=== PATIENT | female | born 1990 | race Caucasian/White ===

== ENCOUNTER → 2016-06-11 | Outpatient (CLI) | payer BC | LOC: MW.CHOBGYN 14:51 | PROVIDERS: ATTEND Nurse Practitioner Women's Health | DX: N92.1 Excessive and frequent menstruation with irregular cycle (principal) | CPT/HCPCS: 36415; 84703; 87389; 87491; 87591 ==

== ENCOUNTER → 2016-06-12 | Outpatient (CLI) | payer BC | END | disposition home or self-care (01) | LOC: MW.CHOBGYN 12:10 | PROVIDERS: ATTEND Nurse Practitioner Women's Health | DX: O20.9 Hemorrhage in early pregnancy, unspecified (principal) | CPT/HCPCS: 36415; 84702; 86900; 86901 ==

== ENCOUNTER → 2016-06-14 | Outpatient (CLI) | payer BC | LOC: MW.CHOBGYN 11:39 | PROVIDERS: ATTEND Nurse Practitioner Women's Health | DX: O20.0 Threatened abortion (principal) | CPT/HCPCS: 36415; 84702 ==

== ENCOUNTER 2017-02-04 14:33 | Emergency (ER) | payer BC ==
[2017-02-04] MEDS ORDERED: Sodium Chloride 0.9% 2.5 ML Syringe FLUSH PRN (14:49)
[2017-02-04] MEDS ORDERED: Sodium Chloride 0.9% 10 ML Syringe FLUSH PRN (14:49)
[2017-02-04] MEDS ORDERED: Sodium Chloride 0.9% 1,000 ML IV ONE (14:50)
[2017-02-04] MEDS ORDERED: LORazepam 0.5 MG Tab PO ONE (14:50)
--- NOTE | 2017-02-04 14:57 | EDM.PDOC ---
ED HPI GENERAL MEDICAL PROBLEM - General Chief Complaint: Cardiovascular Problem Stated Complaint: ANXIETY Time Seen by Provider: 02/04/17 14:41 - History of Present Illness INITIAL COMMENTS - FREE TEXT/NARRATIVE: HISTORY AND PHYSICAL: History of present illness: Patient is a 27-year-old female who presents with vague complaints of feeling a Fluttery feeling in her stomach and feeling not right about her body and somewhat anxious which she says has never happened before. Patient says she drinks coffee and only had coffee today and no by mouth fluids otherwise or any food. She says she drinks coffee several times a day as well as one red bull drink and she also drinks alcohol every other night. She says that this pattern is not new or different and she has never had symptoms like this before with that pattern. She does smoke cigarettes but denies drug use. Patient says she doesn't feel shaky in her arms or legs and doesn't feel like she can pass out or blackout she just doesn't feel right and she thought she should come and get checked out. Patient has never been treated for anxiety or taken medications nor has she ever sought counseling. She does tell me that she has a lot of stressors going on in her life on several different fronts she is not very forthcoming with a lot of reading on these issues. She denies that she is suicidal homicidal. Patient says that she has a history of smoking marijuana sometimes but she is trying to get a new job so she has stopped doing that recently. She has no systemic complaints of fever chills or respiratory symptoms sore throat stomach pain chest pain shortness of breath. She says that the best way she can describe what she is feeling is that she feels very dissociated from everything going on around her and this stresses her. The patient states that she is currently not on control pills and has taken in the past for only one month Review of systems: As per history of present illness and below otherwise all systems reviewed and negative. Past medical history: As per history of present illness and as reviewed below otherwise noncontributory. Surgical history: As per history of present illness and as reviewed below otherwise noncontributory. Social history: No reported history of drug or alcohol abuse. Family history: As per history of present illness and as reviewed below otherwise noncontributory. Physical exam: Gen.: Well-developed well-nourished female who is nontoxic and does look very anxious in the room. She is somewhat fidgety sitting up and laying back and moving her right leg back and forth. HEENT: Atraumatic, normocephalic, pupils reactive, negative for conjunctival pallor or scleral icterus, mucous membranes moist, throat clear, neck supple, nontender, trachea midline. Lungs: Clear to auscultation, breath sounds equal bilaterally, chest nontender. Heart: S1S2, regular, rhythm and tachycardic rate on my evaluation Abdomen: Soft, nondistended, nontender. NABS. Pelvis: Stable nontender. Genitourinary: Deferred. Rectal: Deferred. Extremities: Atraumatic, negative for cords or calf pain. Neurovascular unremarkable. Neuro: Awake, alert, oriented. Cranial nerves II through XII unremarkable. Cerebellum unremarkable. Motor and sensory unremarkable throughout. Exam nonfocal. Diagnostics: EKG CBC CMP troponin UA UDS ECG TSH Therapeutics: IV fluids and monitor Ativan by mouth TSH is pending and can be followed up in the clinic. Currently the patient feels complete resolution of her ill feelings and anxiety. I discussed with her at length with her significant other at bedside and need for close follow-up reduction of caffeine and alcohol intake and follow-up in our clinic. Return reasons to return Impression: Anxiety reaction/dehydration improved Definitive disposition and diagnosis as appropriate pending reevaluation and review of above. - Related Data Allergies Allergy/AdvReac Type Severity Reaction Status Date / Time No Known Allergies Allergy Verified 02/04/17 14:43 Home Meds: Home Meds . [No Known Home Meds] 11/11/14 [History] Past Medical History - Past Health History Medical/Surgical History: Denies Medical/Surgical History Social & Family History - Tobacco Use Smoking Status *Q: Current Every Day Smoker Years of Tobacco use: 8 Packs/Tins Daily: 0.5 - Caffeine Use Caffeine Use: Reports: Coffee, Energy Drinks - Recreational Drug Use Recreational Drug Use: Yes Drug Use in Last 12 Months: Yes Recreational Drug Type: Reports: Marijuana/Hashish Recreational Drug Use Frequency: Not Used In Over 1 Month ED ROS GENERAL - Review of Systems Review Of Systems: ROS reveals no pertinent complaints other than HPI. ED EXAM, GENERAL - Physical Exam Exam: See Below (See dictation) Course - Vital Signs Last Recorded V/S: Last Vital Signs Temp Pulse 135 H 02/04/17 14:37 Resp 12 02/04/17 14:37 BP 126/77 02/04/17 14:37 Pulse Ox 100 02/04/17 14:37 - Orders/Labs/Meds Orders: Active Orders 24 hr Category Date Time Status Cardiac Monitoring [RC] . DIRECTED Care 02/04/17 14:49 Active EKG 12 Lead [EKG Documentation Completion] [RC] STAT Care 02/04/17 14:48 Active Pulse Oximetry [RC] ASDIRECTED Care 02/04/17 14:49 Active Sodium Chloride 0.9% [Saline Flush] Med 02/04/17 14:49 Active 10 ml FLUSH ASDIRECTED PRN Sodium Chloride 0.9% [Saline Flush] Med 02/04/17 14:49 Active 2.5 ml FLUSH ASDIRECTED PRN Saline Lock Insert [OM.PC] Stat Oth 02/04/17 14:49 Ordered Medication Orders Sodium Chloride (Saline Flush) 10 ml FLUSH ASDIRECTED PRN PRN Reason: Keep Vein Open Last Admin: 02/04/17 15:07 Dose: 10 ml Sodium Chloride (Saline Flush) 2.5 ml FLUSH ASDIRECTED PRN PRN Reason: Keep Vein Open Last Admin: 02/04/17 15:30 Dose: 2.5 ml Labs: Laboratory Tests 02/04/17 02/04/17 02/04/17 Range/Units 15:03 15:03 15:03 WBC 8.64 (4.0-11.0) K/uL RBC 4.21 L (4.30-5.90) M/uL Hgb 13.9 (12.0-16.0) g/dL Hct 41.2 (36.0-46.0) % MCV 97.9 (80.0-98.0) fL MCH 33.0 H (27.0-32.0) pg MCHC 33.7 (31.0-37.0) g/dL RDW Std Deviation 46.3 (28.0-62.0) fl RDW Coeff of Vlad 13 (11.0-15.0) % Plt Count 417 H (150-400) K/uL MPV 9.20 (7.40-12.00) fL Neut % (Auto) 41.8 L (48.0-80.0) % Lymph % (Auto) 45.6 H (16.0-40.0) % [place] % (Auto) 8.0 (0.0-15.0) % Eos % (Auto) 3.4 (0.0-7.0) % Baso % (Auto) 1.2 (0.0-1.5) % Neut # (Auto) 3.6 (1.4-5.7) K/uL Lymph # (Auto) 3.9 H (0.6-2.4) K/uL [place] # (Auto) 0.7 (0.0-0.8) K/uL Eos # (Auto) 0.3 (0.0-0.7) K/uL Baso # (Auto) 0.1 (0.0-0.1) K/uL Nucleated RBC % 0.0 /100WBC Nucleated RBCs # 0 K/uL Sodium 143 (136-146) mmol/L Potassium 3.5 (3.5-5.1) mmol/L Chloride 109 (98-110) mmol/L Carbon Dioxide 24 (21-31) mmol/L BUN 9 (6.0-23.0) mg/dL Creatinine 0.8 (0.6-1.5) mg/dL Est Cr Clr Drug Dosing 106.56 mL/min Estimated GFR (MDRD) > 60.0 ml/min Glucose 108 (60-110) mg/dL Calcium 9.9 (8.8-10.8) mg/dL Total Bilirubin 0.3 (0.1-1.5) mg/dL AST 18 (5-40) IU/L ALT 15 (8-54) IU/L Alkaline Phosphatase 68 (40-150) Troponin I < 0.10 (0.0-0.29) NG/ML Total Protein 8.1 H (6.0-8.0) g/dL Albumin 4.4 (3.5-5.0) g/dL Globulin 3.7 H (2.0-3.5) g/dL Albumin/Globulin Ratio 1.2 L (1.3-2.8) TSH 3rd Generation 2.91 (0.47-5.0) uIU/mL Urine Color Urine Appearance Urine pH (5.0-8.0) Ur Specific Stuart (1.001-1.035) Urine Protein (NEGATIVE) mg/dL Urine Glucose (UA) (NEGATIVE) mg/dL Urine Ketones (NEGATIVE) mg/dL Urine Occult Blood (NEGATIVE) Urine Nitrite (NEGATIVE) Urine Bilirubin (NEGATIVE) Urine Urobilinogen (<2.0) EU/dL Ur Leukocyte Esterase (NEGATIVE) Urine RBC (0-2/HPF) Urine WBC (0-5/HPF) Ur Epithelial Cells (NONE-FEW) Amorphous Sediment (NEGATIVE) Urine Bacteria (NEGATIVE) Urine Mucus (NONE-MOD) Urine HCG, Qual (NEGATIVE) Urine Opiates Screen (NEGATIVE) Ur Oxycodone Screen (NEGATIVE) Urine Methadone Screen (NEGATIVE) Ur Barbiturates Screen (NEGATIVE) Ur Phencyclidine Scrn (NEGATIVE) Ur Amphetamine Screen (NEGATIVE) U Methamphetamines Scrn (NEGATIVE) U Benzodiazepines Scrn (NEGATIVE) U Cocaine Metab Screen (NEGATIVE) U Marijuana (THC) Screen (NEGATIVE) 02/04/17 02/04/17 02/04/17 Range/Units 16:00 16:00 16:00 WBC (4.0-11.0) K/uL RBC (4.30-5.90) M/uL Hgb (12.0-16.0) g/dL Hct (36.0-46.0) % MCV (80.0-98.0) fL MCH (27.0-32.0) pg MCHC (31.0-37.0) g/dL RDW Std Deviation (28.0-62.0) fl RDW Coeff of Vlad (11.0-15.0) % Plt Count (150-400) K/uL MPV (7.40-12.00) fL Neut % (Auto) (48.0-80.0) % Lymph % (Auto) (16.0-40.0) % [place] % (Auto) (0.0-15.0) % Eos % (Auto) (0.0-7.0) % Baso % (Auto) (0.0-1.5) % Neut # (Auto) (1.4-5.7) K/uL Lymph # (Auto) (0.6-2.4) K/uL [place] # (Auto) (0.0-0.8) K/uL Eos # (Auto) (0.0-0.7) K/uL Baso # (Auto) (0.0-0.1) K/uL Nucleated RBC % /100WBC Nucleated RBCs # K/uL Sodium (136-146) mmol/L Potassium (3.5-5.1) mmol/L Chloride (98-110) mmol/L Carbon Dioxide (21-31) mmol/L BUN (6.0-23.0) mg/dL Creatinine (0.6-1.5) mg/dL Est Cr Clr Drug Dosing mL/min Estimated GFR (MDRD) ml/min Glucose (60-110) mg/dL Calcium (8.8-10.8) mg/dL Total Bilirubin (0.1-1.5) mg/dL AST (5-40) IU/L ALT (8-54) IU/L Alkaline Phosphatase (40-150) Troponin I (0.0-0.29) NG/ML Total Protein (6.0-8.0) g/dL Albumin (3.5-5.0) g/dL Globulin (2.0-3.5) g/dL Albumin/Globulin Ratio (1.3-2.8) TSH 3rd Generation (0.47-5.0) uIU/mL Urine Color YELLOW Urine Appearance CLEAR Urine pH 7.0 (5.0-8.0) Ur Specific [place] 1.020 (1.001-1.035) Urine Protein NEGATIVE (NEGATIVE) mg/dL Urine Glucose (UA) NEGATIVE (NEGATIVE) mg/dL Urine Ketones NEGATIVE (NEGATIVE) mg/dL Urine Occult Blood NEGATIVE (NEGATIVE) Urine Nitrite NEGATIVE (NEGATIVE) Urine Bilirubin NEGATIVE (NEGATIVE) Urine Urobilinogen 0.2 (<2.0) EU/dL Ur Leukocyte Esterase NEGATIVE (NEGATIVE) Urine RBC 0-1 (0-2/HPF) Urine WBC 0-1 (0-5/HPF) Ur Epithelial Cells RARE (NONE-FEW) Amorphous Sediment LIGHT (NEGATIVE) Urine Bacteria RARE (NEGATIVE) Urine Mucus LIGHT (NONE-MOD) Urine HCG, Qual NEGATIVE (NEGATIVE) Urine Opiates Screen NEGATIVE (NEGATIVE) Ur Oxycodone Screen NEGATIVE (NEGATIVE) Urine Methadone Screen NEGATIVE (NEGATIVE) Ur Barbiturates Screen NEGATIVE (NEGATIVE) Ur Phencyclidine Scrn NEGATIVE (NEGATIVE) Ur Amphetamine Screen NEGATIVE (NEGATIVE) U Methamphetamines Scrn NEGATIVE (NEGATIVE) U Benzodiazepines Scrn NEGATIVE (NEGATIVE) U Cocaine Metab Screen NEGATIVE (NEGATIVE) U Marijuana (THC) Screen NEGATIVE (NEGATIVE) Meds: Medications Generic Name Dose Route Start Last Admin Trade Name Freq PRN Reason Stop Dose Admin Sodium Chloride 10 ml 02/04/17 14:49 02/04/17 15:07 Saline Flush FLUSH 10 ml ASDIRECTED PRN Administration Keep Vein Open Sodium Chloride 2.5 ml 02/04/17 14:49 02/04/17 15:30 Saline Flush FLUSH 2.5 ml ASDIRECTED PRN Administration Keep Vein Open Discontinued Medications Generic Name Dose Route Start Last Admin Trade Name Freq PRN Reason Stop Dose Admin Sodium Chloride 1,000 mls @ 999 mls/hr 02/04/17 14:50 02/04/17 15:07 Normal Saline IV 02/04/17 15:50 999 mls/hr STAT ONE Administration Lorazepam 0.5 mg 02/04/17 14:50 02/04/17 15:29 Ativan PO 02/04/17 14:51 0.5 mg ONETIME ONE Administration Departure - Departure Time of Disposition: 17:02 Disposition: Home, Self-Care 01 Condition: Good Clinical Impression: Dehydration, Anxiety Referrals: PCP,Unknown [Primary Care Provider] - Forms: ED Department Discharge Additional Instructions: The following information is given to patients seen in the emergency department who are being discharged to home. This information is to outline your options for follow-up care. We provide all patients seen in our emergency department with a follow-up referral. The need for follow-up, as well as the timing and circumstances, are variable depending upon the specifics of your emergency department visit. If you don't have a primary care physician on staff, we will provide you with a referral. We always advise you to contact your personal physician following an emergency department visit to inform them of the circumstance of the visit and for follow-up with them and/or the need for any referrals to a consulting specialist. The emergency department will also refer you to a specialist when appropriate. This referral assures that you have the opportunity for followup care with a specialist. All of these measure are taken in an effort to provide you with optimal care, which includes your followup. Under all circumstances we always encourage you to contact your private physician who remains a resource for coordinating your care. When calling for followup care, please make the office aware that this follow-up is from your recent emergency room visit. If for any reason you are refused follow-up, please contact the [facility] emergency department at and ask to speak to the emergency department charge nurse [facility] Primary care- Internal Medicine and Family [address] [address] Please try to reduce or eliminate caffeine and alcohol use. Push hydration. Please contact one of our providers in the clinic for further care and evaluation and also try to connect with outpatient services for counseling and stress reduction strategies. Return to ER as needed and as discussed - My Orders Last 24 Hours: My Active Orders 02/04/17 14:48 EKG 12 Lead [EKG Documentation Completion] [RC] STAT 02/04/17 14:49 Cardiac Monitoring [RC] . DIRECTED Pulse Oximetry [RC] ASDIRECTED Sodium Chloride 0.9% [Saline Flush] 10 ml FLUSH ASDIRECTED PRN Sodium Chloride 0.9% [Saline Flush] 2.5 ml FLUSH ASDIRECTED PRN Saline Lock Insert [OM.PC] Stat - Assessment/Plan Last 24 Hours: My Active Orders 02/04/17 14:48 EKG 12 Lead [EKG Documentation Completion] [RC] STAT 02/04/17 14:49 Cardiac Monitoring [RC] . DIRECTED Pulse Oximetry [RC] ASDIRECTED Sodium Chloride 0.9% [Saline Flush] 10 ml FLUSH ASDIRECTED PRN Sodium Chloride 0.9% [Saline Flush] 2.5 ml FLUSH ASDIRECTED PRN Saline Lock Insert [OM.PC] Stat
[2017-02-04 15:40] LABS: CHLORIDE,CL 109 mmol/L (98-110); SODIUM,NA 143 mmol/L (136-146)
[2017-02-04 17:23] VITALS: BP 108/72
== END 2017-02-04 17:20 | disposition home or self-care (01) ==
LOC: MW.ED 14:33
DX: F41.9 Anxiety disorder, unspecified (principal); E86.0 Dehydration; F17.210 Nicotine dependence, cigarettes, uncomplicated
CPT/HCPCS: 36415; 80053; 80305; 81001; 81025; 84443; 84484; 85025; 93005; 96360; 99285; A9270; J7040; 99284

== ENCOUNTER 2021-08-31 10:44 | Emergency (ER) | payer BC, MEDICAID ==
[2021-08-31 12:10] LABS: BLOOD UREA NITROGEN,BUN 9 mg/dL (7.0-18.0); CARBON DIOXIDE,CO2 30.1 mmol/L (21.0-32.0); CHLORIDE,CL 102 mmol/L (98-107); GLUCOSE RANDOM 82 mg/dL (74-106); LIPASE 117 U/L (73-393); SODIUM,NA 138 mmol/L (136-145)
[2021-08-31 14:14] VITALS: BP 96/62; PULSE 67
== END 2021-08-31 14:13 | disposition home or self-care (01) ==
LOC: MW.ED 10:44
DX: K59.00 Constipation, unspecified (principal); E03.9 Hypothyroidism, unspecified; Z86.16 Personal history of COVID-19; Z79.899 Other long term (current) drug therapy
CPT/HCPCS: 36415; 74176; 74176-26; 80053; 81003; 83690; 84703; 85025; 99283; 99284-25

== ENCOUNTER 2021-09-06 08:51 | Day surgery (SDC) | payer MEDICAID ==
[~2021-09-06 08:51] MED LIST: Lactated Ringers 1,000 ML IV SCH; Lidocaine 2% 5 ML SDV ONE; Propofol 200 MG/20 ML SDV ONE; fentaNYL 100 MCG/2 ML SDV ONE
[2021-09-06] MEDS ORDERED: Propofol 200 MG/20 ML SDV ONE (10:56)
[2021-09-06 11:53] VITALS: BP 84/54; PULSE 65
== END 2021-09-06 12:10 | disposition home or self-care (01) ==
LOC: MW.SDS 08:51
PROVIDERS: ATTEND Surgery
DX: R19.4 Change in bowel habit (principal); K64.4 Residual hemorrhoidal skin tags; K64.8 Other hemorrhoids; R63.4 Abnormal weight loss; G89.29 Other chronic pain; E03.9 Hypothyroidism, unspecified; Z79.890 Hormone replacement therapy; Z87.891 Personal history of nicotine dependence
CPT/HCPCS: 45380; 81025; J2704; J3010; J7120; 00811